=== PATIENT | female | born 1990 | race Hispanic/Latino ===

== ENCOUNTER → 2021-06-05 | Outpatient (CLI) | payer OTHER ==
--- NOTE | 2021-06-05 15:13 | PFTRPT ---
Site: [facility], [address] [place] [address], [id number] ID: [id number] Name: BERNADETTE NORTON Visit Date: 06/05/2021 Second ID: [id number] Referring Doctor: Gregorio Fontenot D.O. Reviewing Doctor: Roly Huff MD [employer] Supervisor: Clint FELIPE RRT Age: 30 : 1990 Sex: Female Race: Height: 60.00 Inches Weight: 108.00 Lbs BSA: 1.44 Order IDs: [id number] Requested Test(s): <RESP-PFT.PFT B/A> Diagnosis: DYSPNEA test meet the ATS standards for acceptability and repeatability. Pt was given four puffs of albuterol for post bronchodilator. Review Status: Not Reviewed Pre-Bronch Post-Bronch Pred Actual %Pred Actual %Chng SPIROMETRY FVC (L) 3.29 3.29 99 3.18 -3 FEV1 (L) 2.78 2.81 101 2.82 FEV1/FVC (%) 85 86 100 89 3 FEF 25% (L/sec) 5.23 5.71 109 5.50 -3 FEF 50% (L/sec) 4.44 4.50 101 4.31 -4 FEF 75% (L/sec) 1.86 1.55 83 1.62 4 FEF 25-75% (L/sec) 3.30 3.54 107 3.62 2 FEF Max (L/sec) 6.33 6.36 100 5.95 -6 FIVC (L) 3.23 3.17 -2 FIF 50% (L/sec) 3.68 3.20 87 3.62 13 FIF Max (L/sec) 3.74 3.74 MVV (L/min) 99 95 96 Expiratory Time (sec) 6.46 6.56 1 Back Extrap Vol (L) 0.10 0.10 -1 Time To FEFmax (sec) 0.085 0.120 40 LUNG VOLUMES SVC (L) 3.23 3.12 96 IC (L) 2.05 2.39 116 ERV (L) 1.18 0.73 61 TGV (L) 2.40 2.31 96 RV (Pleth) (L) 1.22 1.58 129 TLC (Pleth) (L) 4.45 4.70 105 RV/TLC (Pleth) (%) 28 34 120 DIFFUSION DLCOunc (ml/min/mmHg) 23.12 24.20 104 DL/VA (ml/min/mmHg/L) 5.20 5.91 113 VA (L) 4.45 4.10 92 BHT (sec) 10.01 IVC (L) 3.12 TLC (SB) (L) 4.25 AIRWAYS RESISTANCE Raw (cmH2O/L/s) 1.86 1.13 60 Gaw (L/s/cmH2O) 1.03 0.89 86 sRaw (cmH2O*s) 4.76 2.50 52 sGaw (1/cmH2O*s) 0.20 0.40 201
== END ==
LOC: M CARPUL 14:29
PROVIDERS: ATTEND Emergency Medicine
DX: J45.909 Unspecified asthma, uncomplicated (principal)

== ENCOUNTER → 2021-06-10 | Outpatient (CLI) | payer OTHER ==
[~2021-06-10] MED LIST: METHACHOLINE KIT (J7674) INH ONE
--- NOTE | 2021-06-10 09:48 | PFTRPT ---
Height: 60.00 Inches Weight: 108.00 Lbs BSA: 1.44 Diagnosis: DYSPNEA DATE: 06/10/2021 ORDERED BY: Dr. Gregorio Fontenot QUALITY: Study of excellent technical quality. PROCEDURE: Under protocol, methacholine was administered. A dose of 2.5 mg or 13.875 CDUs, a 22% decline in the FEV1 was noted. PC of 1.53 is significant. Flow rates did return to baseline post bronchodilator administration. IMPRESSION: Positive methacholine challenge study. MTDD
== END ==
LOC: M CARPUL 09:05
PROVIDERS: ATTEND Emergency Medicine
DX: R06.00 Dyspnea, unspecified (principal); Z86.16 Personal history of COVID-19
CPT/HCPCS: 94070; J7674